=== PATIENT | female | born 1955 | race Caucasian/White ===

== ENCOUNTER → 2023-03-20 14:47 | Outpatient (CLI) | payer MEDICARE, SELFPAY ==
--- NOTE | 2023-03-20 14:58 | XR_ITS ---
FINAL REPORT TECHNIQUE: Chest PA & Lateral CLINICAL HISTORY: FEVER,COUGH,SPUTUM,COPD, FINDINGS: 2 views of the chest were performed. A loop recorder device is present. The heart size is normal. The mediastinum is within normal limits. There are bilateral interstitial opacities. There are right lung alveolar opacities worrisome for pneumonia. There are no pleural effusions. There is no pneumothorax. The bony thorax appears intact. IMPRESSION: Right lung alveolar opacities worrisome for pneumonia. Reviewed, Interpreted and Dictated by Janes Sky III, MD Transcribed by Cezar Hoff Authenticated and . [facility]
== END ==
PROVIDERS: PCP Internal Medicine; Visit Provider Internal Medicine
DX: R05.9 Cough, unspecified (principal); R50.9 Fever, unspecified; R09.89 Other specified symptoms and signs involving the circulatory and respiratory systems; J44.1 Chronic obstructive pulmonary disease with (acute) exacerbation
CPT/HCPCS: 71046